=== PATIENT | female | born 1940 | race African-American/Black ===

== ENCOUNTER → 2018-05-08 | Outpatient (CLI) | payer MEDICARE ==
--- NOTE | 2018-05-08 09:40 | RADIOLOGY REPORT (SQ) ---
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 TECHNIQUE: Grayscale ultrasound, Doppler velocity and spectra, and color Doppler images acquired of the extra-cranial carotid and vertebral arteries. Images stored on PACS. LIMITATIONS: None. FINDINGS: RIGHT CAROTID CCA Velocities: Normal velocities and waveforms. No evidence of high-grade stenosis. ICA Velocities Peak systolic 60 m/s. End diastolic 18 m/s. Proximal ICA/CCA peak systolic ratio 0.75. Spectra normal. Grayscale evaluation demonstrates no significant plaque. LEFT CAROTID CCA Velocities: Normal waveform and velocities. No evidence of high-grade stenosis. ICA Velocities Peak systolic 85 m/s. End diastolic 24 m/s. Proximal ICA/CCA peak systolic ratio 0.91. Spectra normal. Grayscale evaluation demonstrates no significant plaque. VERTEBRAL ARTERIES: Antegrade flow. OTHER: No other significant finding. IMPRESSION: NO HEMODYNAMICALLY SIGNIFICANT STENOSIS. COMMENT: Quality ID #[id number]: Velocity criteria are extrapolated from the diameter data as defined by t he Society of Radiologists in Ultrasound Consensus Conference. Radiology 2003: 229; 340-346. TECHNICAL DOCUMENTATION: JOB ID: [id number] [employer]- All Rights Reserved Reading location - IP/workstation name: [email or web address]
== END ==
LOC: SP 07:26
PROVIDERS: ATTEND Internal Medicine Nephrology
DX: I65.23 Occlusion and stenosis of bilateral carotid arteries (principal)
CPT/HCPCS: 93880

== ENCOUNTER → 2018-05-28 | Outpatient (CLI) | payer MEDICARE ==
[2018-05-28 09:51] LABS: ABSOLUTE LYMPHOCYTES (AUTO) 1.4 10^3/uL (0.5-4.7); ABSOLUTE MONOCYTES (AUTO) 0.4 10^3/uL (0.1-1.4); ABSOLUTE NEUT (AUTO) 2.6 10^3/uL (1.7-8.2); BASOPHILS % (AUTO) 0.5 % (0-2); EOSINOPHILS % (AUTO) 0.1 % (0-6); HEMATOCRIT 40.9 % (36.0-47.0); HEMOGLOBIN 14.2 g/dL (12.0-15.5); LYMPHOCYTES % (AUTO) 31.1 % (13-45); MEAN CORPUSCULAR HEMOGLOBIN 31.1 pg (27.0-33.4); MEAN CORPUSCULAR HGB CONC 34.6 g/dL (32.0-36.0); MEAN CORPUSCULAR VOLUME 90 fl (80-97); MONOCYTES % (AUTO) 9.2 % (3-13); PLATELET COUNT 208 10^3/uL (150-450); RED BLOOD COUNT 4.55 10^6/uL (3.72-5.28); RED CELL DISTRIBUTION WIDTH 12.8 % (11.5-14.0); SEGMENTED NEUTROPHILS % (AUTO) 59.1 % (42-78); TOTAL CELLS COUNTED % (AUTO) 100 %; WHITE BLOOD COUNT 4.5 10^3/uL (4.0-10.5)
[2018-05-28 09:52] LABS: APPEARANCE,URINE CLEAR; BILIRUBIN,URINE NEGATIVE (NEGATIVE); COLOR,URINE YELLOW; GLUCOSE, URINE NEGATIVE (NEGATIVE); KETONES,URINE NEGATIVE (NEGATIVE); LEUKOCYTE ESTERASE,URINE NEGATIVE (NEGATIVE); NITRITE,URINE NEGATIVE (NEGATIVE); PROTEIN,URINE 100 mg/dL (NEGATIVE); URINE SPECIFIC GRAVITY 1.011; UROBILINOGEN,URINE NEGATIVE mg/dL (<2.0)
[2018-05-28 10:04] LABS: ALANINE AMINOTRANSFERASE 23 U/L (9-52); ALBUMIN 4.3 g/dL (3.5-5.0); ALKALINE PHOSPHATASE 71 U/L (38-126); ANION GAP 11 (5-19); ASPARTATE AMINO TRANSFERASE 27 U/L (14-36); BILIRUBIN,DIRECT 0.3 mg/dL (0.0-0.4); BILIRUBIN,TOTAL 0.6 mg/dL (0.2-1.3); BLOOD UREA NITROGEN 16 mg/dL (7-20); CARBON DIOXIDE 26 mmol/L (22-30); CHLORIDE 104 mmol/L (98-107); GLUCOSE 153 mg/dL (75-110); POTASSIUM 3.4 mmol/L (3.6-5.0); SODIUM 141.4 mmol/L (137-145); TOTAL PROTEIN 7.1 g/dL (6.3-8.2)
[2018-05-29 10:38] LABS: CREATININE URINE 67.6 mg/dL (Not Estab.); MICROALBUMIN URINE 340.6 ug/mL (Not Estab.)
== END ==
LOC: OD 08:48
PROVIDERS: ATTEND Internal Medicine Nephrology
DX: I10 Essential (primary) hypertension (principal); R80.9 Proteinuria, unspecified
CPT/HCPCS: 36415; 80053; 81001; 82043; 82570; 84443; 85025

== ENCOUNTER → 2018-07-29 | Outpatient (CLI) | payer MEDICARE ==
--- NOTE | 2018-07-30 09:40 | RADIOLOGY REPORT (SQ) ---
EXAM DESCRIPTION: PET CT SKULL/THIGH COMPLETED DATE/TIME: 07/29/2018 9:09 pm REASON FOR STUDY: (R92.8) OTH ABN AND INCONCLUSIVE FINDINGS ON DX IMAGING OF BREAST R92.8 OTH ABN A ND INCONCLUSIVE FINDINGS ON DX IMAGING OF SADIE COMPARISON: None. RADIONUCLIDE AND DOSE: 10 mCi F18 FDG The route of agent administration: Intravenous FASTING BLOOD SUGAR: 92 mg/dl CONTRAST TYPE AND DOSE: No CT contrast given. TECHNIQUE: Blood glucose level was verified. Above dose of FDG was injected intravenously. 2-D seg mented attenuation correction images were obtained from the base of the skull to the midthighs. Nonc ontrast CT images were obtained for attenuation correction and fusion with emission images. CT image s were performed without oral or intravenous contrast and are not sensitive for parenchymal lesions. A series of overlapping emission PET images were obtained. Images reviewed and manipulated at [facility] work station by the radiologist. Images stored on PACS. LIMITATIONS: None. FINDINGS: HEAD AND NECK: No areas of abnormal metabolic activity in the soft tissues of the head and neck. CHEST: Right mastectomy. 2 cm soft tissue mass in the medial chest wall, superficial to the pectoral is major muscle. There is a clip within the mass. Mean SUV 4.78. No other areas of abnormal metabo lic activity in the chest. ABDOMEN AND PELVIS: No areas of abnormal metabolic activity in the abdomen or pelvis. Expected physi ologic activity is present in the genitourinary system and bowel. PROXIMAL LOWER EXTREMITIES: No areas of abnormal metabolic activity in the soft tissues of the lower extremities. BONES: No abnormal metabolic activity in the visualized skeleton. ADDITIONAL CT FINDINGS: Multiple hepatic cysts. Most of these measure 1 cm or less. The largest in the right lobe measures 10 x 12 cm. No additional significant findings on the noncontrast CT images. OTHER: Background blood pool activity mean SUV 2.08. Background liver activity mean SUV 2.21. No ot her significant findings. IMPRESSION: 1. RIGHT MASTECTOMY. 2 CM HYPERMETABOLIC SOFT TISSUE MASS IN THE MEDIAL CHEST WALL CONSISTENT WITH L OCAL RECURRENCE. 2. THE REMAINDER OF THE PET SCAN IS OTHERWISE UNREMARKABLE. NO EVIDENCE OF METASTATIC INVOLVEMENT. THERE ARE MULTIPLE HEPATIC CYSTS, THE LARGEST MEASURING 12 CM. TECHNICAL DOCUMENTATION: JOB ID: [id number] [employer]- All Rights Reserved Reading location - IP/workstation name: [email or web address]-
== END ==
LOC: RAD 16:42
PROVIDERS: ATTEND Internal Medicine Medical Oncology
DX: R22.2 Localized swelling, mass and lump, trunk (principal); K76.89 Other specified diseases of liver
CPT/HCPCS: 78815; A9552

== ENCOUNTER → 2018-08-01 | Outpatient (CLI) | payer MEDICARE ==
[2018-08-01 10:13] LABS: APPEARANCE,URINE CLEAR; BILIRUBIN,URINE NEGATIVE (NEGATIVE); COLOR,URINE YELLOW; GLUCOSE, URINE NEGATIVE (NEGATIVE); KETONES,URINE TRACE mg/dL (NEGATIVE); LEUKOCYTE ESTERASE,URINE NEGATIVE (NEGATIVE); NITRITE,URINE NEGATIVE (NEGATIVE); PROTEIN,URINE >=500 mg/dL (NEGATIVE); URINE SPECIFIC GRAVITY 1.016; UROBILINOGEN,URINE NEGATIVE mg/dL (<2.0)
[2018-08-01 10:39] LABS: UR PRO/CREAT RATIO RESULT 2.2 mg/mg (0.0-0.2); URINE PROTEIN 424.5 mg/dL (<12)
[2018-08-01 10:40] LABS: HEMATOCRIT 41.3 % (36.0-47.0); HEMOGLOBIN 14.1 g/dL (12.0-15.5); MEAN CORPUSCULAR HEMOGLOBIN 31.1 pg (27.0-33.4); MEAN CORPUSCULAR HGB CONC 34.2 g/dL (32.0-36.0); MEAN CORPUSCULAR VOLUME 91 fl (80-97); PLATELET COUNT 207 10^3/uL (150-450); RED BLOOD COUNT 4.55 10^6/uL (3.72-5.28); RED CELL DISTRIBUTION WIDTH 13.2 % (11.5-14.0); WHITE BLOOD COUNT 3.7 10^3/uL (4.0-10.5)
[2018-08-01 11:03] LABS: ANION GAP 13 (5-19); BLOOD UREA NITROGEN 12 mg/dL (7-20); CALCIUM 9.3 mg/dL (8.4-10.2); CARBON DIOXIDE 31 mmol/L (22-30); CHLORIDE 98 mmol/L (98-107); GLUCOSE 120 mg/dL (75-110); POTASSIUM 3.4 mmol/L (3.6-5.0); SODIUM 141.7 mmol/L (137-145)
== END ==
LOC: OD 09:04
PROVIDERS: ATTEND Internal Medicine Nephrology
DX: I10 Essential (primary) hypertension (principal); R80.9 Proteinuria, unspecified
CPT/HCPCS: 36415; 80048; 81001; 82570; 83735; 84156; 85027

== ENCOUNTER 2018-08-27 06:22 | Day surgery (SDC) | payer MEDICARE ==
[~2018-08-27 06:22] MED LIST: ACETAMINOPHEN 325 MG TABLET PO PRN; CEFAZOLIN 1 GM/D5W RTU 1 GM/50 ML RTUPB IV ONE; CEFAZOLIN 1 GM/D5W RTU 1 GM/50 ML RTUPB IV PRN; RINGERS SOLUTION,LACTATED 1,000 ML IV PRN
[2018-08-27 07:02] LABS: ABSOLUTE EOSINOPHILS # (AUTO) 0.1 10^3/uL (0.0-0.6); ABSOLUTE LYMPHOCYTES (AUTO) 1.3 10^3/uL (0.5-4.7); ABSOLUTE MONOCYTES (AUTO) 0.2 10^3/uL (0.1-1.4); ABSOLUTE NEUT (AUTO) 1.7 10^3/uL (1.7-8.2); BASOPHILS % (AUTO) 1.1 % (0-2); EOSINOPHILS % (AUTO) 1.5 % (0-6); HEMATOCRIT 39.2 % (36.0-47.0); HEMOGLOBIN 13.5 g/dL (12.0-15.5); LYMPHOCYTES % (AUTO) 39.3 % (13-45); MEAN CORPUSCULAR HEMOGLOBIN 31.1 pg (27.0-33.4); MEAN CORPUSCULAR HGB CONC 34.4 g/dL (32.0-36.0); MEAN CORPUSCULAR VOLUME 90 fl (80-97); MONOCYTES % (AUTO) 6.6 % (3-13); PLATELET COUNT 175 10^3/uL (150-450); RED BLOOD COUNT 4.34 10^6/uL (3.72-5.28); RED CELL DISTRIBUTION WIDTH 12.7 % (11.5-14.0); SEGMENTED NEUTROPHILS % (AUTO) 51.5 % (42-78); TOTAL CELLS COUNTED % (AUTO) 100 %; WHITE BLOOD COUNT 3.4 10^3/uL (4.0-10.5)
[2018-08-27] MEDS ORDERED: LIDOCAINE 0.5% INJ-PF (5 MG/ML) 50 ML SDV ONE (07:57)
[2018-08-27] MEDS ORDERED: BACITRACIN INJ 50,000 UNIT VIAL ONE (07:57)
[2018-08-27] MEDS ORDERED: LOSARTAN POTASSIUM 50 MG TABLET PO ONE (08:00)
[2018-08-27] MEDS ORDERED: HYDROCHLOROTHIAZIDE 12.5 MG TABLET PO ONE (08:00)
[2018-08-27] MEDS ORDERED: LABETALOL HCL 200 MG TABLET PO ONE (08:00)
[2018-08-27] MEDS ORDERED: FENTANYL CITRATE INJ/PF 100 MCG/2 ML AMPUL ONE (09:18)
[2018-08-27] MEDS ORDERED: MIDAZOLAM 2 MG/2 ML INJ ONE (09:18)
[2018-08-27 12:01] VITALS: BP 151/77
--- NOTE | 2018-08-28 09:14 | RADIOLOGY REPORT (SQ) ---
EXAM DESCRIPTION: PORTACATH INSERTION; GUIDANCE FLUOROSCOPIC COMPLETED DATE/TIME: 08/27/2018 10:37 am REASON FOR STUDY: RIGHT BREAST CA C50.911 MALIGNANT NEOPLASM OF UNSP SITE OF RIGHT FEMALE VAMSI Z79. 899 OTHER ESTIMATION MANAGER (CURRENT) DRUG THERAPY COMPARISON: PET-CT 07/29/2018 FLUOROSCOPY TIME: 0.6 minutes 45 digital radiographic images saved to PACS. TECHNIQUE: Intra-operative images acquired during surgical procedure to evaluate progress. NUMBER OF IMAGES: 45 digital radiographic images LIMITATIONS: None. FINDINGS: Intra procedural imaging and fluoro during left-sided permanent central line placement. IMPRESSION: IMAGE(S) OBTAINED DURING PROCEDURE. COMMENT: Quality ID 145: Final reports for procedures using fluoroscopy that document radiation exp osure indices, or exposure time and number of fluorographic images (if radiation exposure indices are not available) Please consult full operative report of the attending physician for description of the procedure. TECHNICAL DOCUMENTATION: JOB ID: [id number] [employer]- All Rights Reserved Reading location - IP/workstation name: [email or web address]
--- NOTE | 2018-08-28 09:14 | RADIOLOGY REPORT (SQ) ---
EXAM DESCRIPTION: PORTACATH INSERTION; GUIDANCE FLUOROSCOPIC COMPLETED DATE/TIME: 08/27/2018 10:37 am REASON FOR STUDY: RIGHT BREAST CA C50.911 MALIGNANT NEOPLASM OF UNSP SITE OF RIGHT FEMALE VAMSI Z79. 899 OTHER STRUCTURAL ANALYST (CURRENT) DRUG THERAPY COMPARISON: PET-CT 07/29/2018 FLUOROSCOPY TIME: 0.6 minutes 45 digital radiographic images saved to PACS. TECHNIQUE: Intra-operative images acquired during surgical procedure to evaluate progress. NUMBER OF IMAGES: 45 digital radiographic images LIMITATIONS: None. FINDINGS: Intra procedural imaging and fluoro during left-sided permanent central line placement. IMPRESSION: IMAGE(S) OBTAINED DURING PROCEDURE. COMMENT: Quality ID 145: Final reports for procedures using fluoroscopy that document radiation exp osure indices, or exposure time and number of fluorographic images (if radiation exposure indices are not available) Please consult full operative report of the attending physician for description of the procedure. TECHNICAL DOCUMENTATION: JOB ID: [id number] [employer]- All Rights Reserved Reading location - IP/workstation name: [email or web address]
== END 2018-08-27 11:45 | disposition home or self-care (01) ==
LOC: CCL 06:22
PROVIDERS: ATTEND Surgery
DX: C50.911 Malignant neoplasm of unspecified site of right female breast (principal); Z79.899 Other long term (current) drug therapy; I10 Essential (primary) hypertension; E11.9 Type 2 diabetes mellitus without complications; Z85.3 Personal history of malignant neoplasm of breast; F17.200 Nicotine dependence, unspecified, uncomplicated; Z79.84 Long term (current) use of oral hypoglycemic drugs
CPT/HCPCS: 36415; 82947; 85025; 36561; 76937; 77001; C1752; C1788; J2250; J3490 ×2; J0690; A9270 ×3; J3010; J1644; Q9967

== ENCOUNTER → 2018-09-04 | Outpatient (CLI) | payer MEDICARE ==
--- NOTE | 2018-08-27 10:47 | Discharge Summary ---
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 Patient may take Tylenol or Motrin as needed pain. May shower in 48 hours. Allow Steri-Strips to fall off Discharge Diet: Regular Discharge Activity: Activity As Tolerated Home Care Assistance: None Needed Report the Following to Your Physician Immediately: Shortness of Breath, Increase in Pain, Fever over 101 Degrees
--- NOTE | 2018-08-27 10:54 | Operative Report ---
Operative Report DATE OF SURGERY: 08/27/18 PREOPERATIVE DIAGNOSIS: Recurrent right chest wall malignancy consistent with p rimary breast cancer POSTOPERATIVE DIAGNOSIS: Same OPERATION: 1. Focused ultrasound of the left neck. 2. Placement of left subclavian single-chamber [id number]-o-[id number] catheter. 3. Interpretation of intraoperative fluoroscopy. SURGEON: BRADEN FIGUEROA ANESTHESIA: Moderate Sedation TISSUE REMOVED OR ALTERED: None COMPLICATIONS: None ESTIMATED BLOOD LOSS: 15 cc INTRAOPERATIVE FINDINGS: See below PROCEDURE: Patient was taken from the ambulatory surgery to the main cardiac catheterization lab where she was placed supine position arms tucked, left neck and chest wall prepped and draped in sterile fashion Surgical plan surgical timeout were conducted. We initially approached the left internal jugular vein. Adjacent skin was anesthetized 1% plain lidocaine. A small sarah was made the skin with 11 blade. Using the micro needle and wire, with ultrasound as an active guide, several attempts were made to cannulate and thread the micro wire into the internal jugular vein. Unfortunately upon entry into the vein, the wire could never be successfully advanced without encountering resistance. Therefore the left internal jugular vein access approach was aborted. A suitable site in the left subclavian area was then chosen for port placement. This was identical to the site of the previous port placed by Dr. Marcelo 15 years ago. The skin was anesthetized 1% plain lidocaine. Slightly cephalad to this, below the clavicle, a small sarah was made the skin for the planned venipuncture. Using the 16-gauge needle, the left subclavian vein was cannulated without difficulty and a wire threaded into position under fluoroscopic guidance. The skin was incised over the previous scar, with an incision approximately 3 cm in length. A subclavian pocket was developed with electrocautery and blunt dissection. There is a moderate amount of scar tissue. We now tunneled the catheter between these 2 incisions, trimmed the catheter approximately 24 cm in length, attached to the port and the plastic ring. The port was tucked into the subclavian pocket. Now under fluoroscopic guidance we threaded the dilator and introducer sheath over the conventional guidewire. The guidewire and dilator removed, and the single-lumen catheter threaded into the left subclavian vein. Strip away sheath was removed leaving the cath in good position with the tip in the superior vena cava right atrial junction. There was no evidence of kinking of the catheter, no pneumothorax identified. The catheter was aspirated and flushed with heparinized saline. There was no mechanical bleeding. We felt the operation was complete. All wounds were closed with 3-0 Vicryl benzoin and Steri-Strips Patient tolerated the procedure well, recovered, taken to the amatory area in st able condition.
--- NOTE | 2018-09-05 13:39 | RADIOLOGY REPORT (SQ) ---
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 RADIONUCLIDE AND DOSE: 26.0 mCi technetium 99m labeled red blood cells The route of agent administration: Intravenous TECHNIQUE: Following administration of the radionuclide, gated images of the heart are obtained in t hree projections. Left ventricular functional analysis performed. LIMITATIONS: None. FINDINGS: LEFT VENTRICULAR FUNCTION: EJECTION FRACTION: 77%. END-DIASTOLIC VOLUME: 91 mL. END-SYSTOLIC VOLUME: 15 mL. WALL MOTION: No focal wall motion abnormalities. OTHER: No other significant finding. IMPRESSION: NORMAL CARDIAC MUGA STUDY. NORMAL LEFT VENTRICULAR FUNCTION WITH VALUES ABOVE. TECHNICAL DOCUMENTATION: JOB ID: [id number] [employer]- All Rights Reserved Reading location - IP/workstation name: [email or web address]
== END ==
LOC: RAD 09:59
PROVIDERS: ATTEND Internal Medicine Medical Oncology
DX: I42.7 Cardiomyopathy due to drug and external agent (principal)
CPT/HCPCS: 78472; A9560; Q9969

== ENCOUNTER → 2018-10-24 | Outpatient (CLI) | payer MEDICARE ==
[2018-10-24 10:18] LABS: ANION GAP 12 (5-19); BLOOD UREA NITROGEN 12 mg/dL (7-20); CALCIUM 8.8 mg/dL (8.4-10.2); CARBON DIOXIDE 27 mmol/L (22-30); CHLORIDE 99 mmol/L (98-107); GLUCOSE 115 mg/dL (75-110); PHOSPHORUS 3.8 mg/dL (2.5-4.5); POTASSIUM 3.8 mmol/L (3.6-5.0)
== END ==
LOC: OD 09:04
PROVIDERS: ATTEND Internal Medicine Nephrology
DX: I12.9 Hypertensive chronic kidney disease with stage 1 through stage 4 chronic kidney disease, or unspecified chronic kidney disease (principal); N18.9 Chronic kidney disease, unspecified; E78.5 Hyperlipidemia, unspecified; R80.9 Proteinuria, unspecified
CPT/HCPCS: 36415; 80069; 83735